=== PATIENT | male | born 1970 | race Caucasian/White ===

== ENCOUNTER → 2019-03-04 07:39 | Outpatient (CLI) | payer BC, SELFPAY ==
--- NOTE | 2019-03-04 07:47 | CT_ITS ---
STUDY: CTA CHEST REASON FOR EXAM: Male, 48 years old. Dilatation of the ascending thoracic aorta. RADIATION DOSAGE (If Supplied By Facility): CTDIvol = ( 16.17 ) mGy, DLP = ( 685.07 ) mGycm TECHNIQUE: The examination was performed with the intravenous administration of 100 IV Isovue 370. Post-processing of the angiographic images was performed, with multiplanar reformation and 3D reconstruction. Individualized dose optimization techniques were used for this CT. COMPARISON: None. FINDINGS: Normal enhancement of the main pulmonary artery and right and left pulmonary arteries. Normal enhancement of the bilateral peripheral pulmonary arteries. There is no demonstrated pulmonary embolism. There is aneurysmal dilatation of the ascending aorta. The transverse diameter of the ascending aorta measures 49 mm's. There is no demonstrated aortic dissection. Normal heart and pericardium. Normal mediastinum. There are calcified left hilar lymph nodes. Normal visualized trachea and bronchi. The lungs are well expanded. Normal pulmonary parenchyma. Normal pleura. Normal chest wall structures. Normal osseous structures. Small hiatal hernia. Calcified splenic granulomas. CT/CTA Chest W/WO Contrast IMPRESSION: Dilatation of the ascending thoracic aorta with a transverse dimension of 4.9 cm. Electronically Signed: Chandler Tomas, at 13:43 EDT , Service support ,
== END ==
PROVIDERS: Family Provider Nurse Practitioner Family; PCP Nurse Practitioner Family; Referring Provider Nurse Practitioner Family; Visit Provider Nurse Practitioner Family
DX: R93.1 Abnormal findings on diagnostic imaging of heart and coronary circulation (principal)
CPT/HCPCS: 71275; Q9967

== ENCOUNTER → 2020-06-12 08:05 | Outpatient (CLI) | payer BC, SELFPAY ==
--- NOTE | 2020-06-12 08:08 | CT_ITS ---
STUDY: CTA CHEST REASON FOR EXAM: Male, 49 years old. TAA REPAIR, ? LEAKING VALVE ON US, HTN RADIATION DOSAGE (If Supplied By Facility): CTDIvol = ( 14.12 ) mGy, DLP = ( 662.05 ) mGycm TECHNIQUE: The examination was performed with the intravenous administration of IV 100mL Isovue-370. Post-processing of the angiographic images was performed, with multiplanar reformation and 3D reconstruction. Individualized dose optimization techniques were used for this CT. COMPARISON: None. FINDINGS: Normal enhancement of the main pulmonary artery and right and left pulmonary arteries. Normal enhancement of the bilateral peripheral pulmonary arteries. There is no demonstrated pulmonary embolism. Normal thoracic aorta and visualized great vessels. There is no demonstrated aortic dissection. Sternal cerclage wires are present from a prior sternotomy. Status post repair of the aneurysmal dilatation of the ascending thoracic aorta. The transverse dimension of the descending thoracic aorta at its root presently measures 3.26 cm. Normal mediastinum. Normal hilar regions. Normal visualized trachea and bronchi. The lungs are well expanded. Normal pulmonary parenchyma. Normal pleura. Normal chest wall structures. Normal osseous structures. Scattered calcified splenic granulomas. CT/CTA Chest W/WO Contrast IMPRESSION: Interval repair of the aneurysm of the ascending thoracic aorta. Normal postoperative appearance. Electronically Signed: Chandler Tomas, at 11:03 EST , Service support ,
== END ==
PROVIDERS: PCP Nurse Practitioner Family
DX: Q23.1 Congenital insufficiency of aortic valve (principal)
CPT/HCPCS: 71275; Q9967